=== PATIENT | female | born 1970 | race African-American/Black ===

== ENCOUNTER 2016-10-13 11:27 | Emergency (ER) | payer MEDICAID, OTHER ==
[~2016-10-13] VITALS: Ht 172.7 cm; Wt 54.4 kg
[~2016-10-13 11:27] MED LIST: ATIVAN1 MG ORAL; BACTRIM-DS1 EA PO; FLONASE1 SPRAYS NASAL; IBUPROFEN600 MG PO; KEFLEX500 MG PO; NKM
[2016-10-13 11:35] VITALS: BP 103/59
[2016-10-13 11:58] LABS: APPEARANCE,URINE CLEAR; KETONES,URINE NEGATIVE (NEGATIVE); LEUKOCYTE ESTERASE ,URINE 2+ (NEGATIVE); NITRITE,URINE NEGATIVE (NEGATIVE); PH,URINE 6.5 (4.5-8.0); PROTEIN,URINE 2+ (NEGATIVE); UROBILINOGEN,URINE NORMAL MG/DL (0.0-1.0)
[2016-10-13 12:11] LABS: BACTERIA,URINE FEW /HPF; SQUAMOUS EPITHELIAL CELL,UR FEW /LPF (NONE/OCC); WBC,URINE 15-20 /HPF (0 - 2)
[2016-10-13] MEDS ORDERED: CIPROFLOXACIN500 M2 ORAL (13:28)
[2016-10-13 13:35] VITALS: BP 103/54
--- NOTE | 2016-10-13 13:47 | Emergency Room Report ---
History of Present Illness General Chief Complaint: Vomiting Source: Patient Present Illness HPI 46YOF walk-in with 3 days right flank pain and polyuria. Denies fever/chills, abd pain, nausea/vomiting Denies previous Abd/pelvic surgery Denies other medical problems Allergies: Coded Allergies: No Known Allergies (Unverified , 01/21/12) Patient History Past Medical History: none Past Surgical History: none Pertinent Family History: none Social History: Denies: alcohol use, drug use, smoking Now: No Immunizations: UTD Reviewed Nursing Documentation: PMH: Agreed, PSxH: Agreed Nursing Documentation-PMH Hx Cardiac Problems: No - anemia Review of Systems All Other Systems: negative except mentioned in HPI Physical Exam Vital Signs Date Time Temp Pulse Resp B/P Pulse Ox O2 Delivery O2 Flow Rate FiO2 10/13/16 11:35 99.7 20 103/59 100 Room Air 10/13/16 11:35 108 Sp02 EP Interpretation: reviewed, normal General Appearance: normal inspection, well appearing, no apparent distress, alert, GCS 15, non-toxic Head: normocephalic, atraumatic Eyes: bilateral eye EOMI, bilateral eye PERRL ENT: normal ENT inspection, hearing grossly normal, normal voice Neck: normal inspection, full range of motion, supple, no bony tend Respiratory: normal inspection, lungs clear, normal breath sounds, no respiratory distress, no retraction, no wheezing Cardiovascular #1: regular rate, rhythm, no edema Gastrointestinal: normal inspection, normal bowel sounds, non tender, soft, no guarding, no hernia Genitourinary: CVA tenderness (R) Musculoskeletal: normal inspection, back normal, normal range of motion, Yocasta' s Sign negative Neurologic: normal inspection, alert, oriented x3, responsive, direct support staff member III-XII nml as tested, motor strength/tone normal, speech normal Psychiatric: normal inspection, judgement/insight normal, mood/affect normal Skin: normal inspection, normal color, no rash Medical Decision Making Diagnostic Impression: Primary Impression: Flank pain Additional Impression: Pyelonephritis ER Course UA grossly infected With accompanying right flank pain, ?pyelo Tolerating PO in ED Rx Cipro BID for 7 days Close PMD followup Last Vital Signs Date Time Temp Pulse Resp B/P Pulse Ox O2 Delivery O2 Flow Rate FiO2 10/13/16 11:35 99.7 108 20 103/59 100 Room Air Status: improved Disposition: HOME, SELF-CARE Condition: Improved Scripts Ciprofloxacin Hcl* (CIPROFLOXACIN HCL*) 500 Mg Tablet 500 MG ORAL Q12H for 7 Days, #14 TAB 0 Refills Prov: REHAN GOLDEN M.D. 10/13/16 Patient Instructions: Pyelonephritis, Adult, [id number] REHAN GOLDEN M.D. Oct 13, 2016 13:47
== END 2016-10-13 13:35 | disposition home or self-care (01) ==
LOC: EMR 12:20
DX: N12 Tubulo-interstitial nephritis, not specified as acute or chronic (principal)
CPT/HCPCS: 81003; 81025; 87086; 87181; 99283

== ENCOUNTER 2017-02-23 13:17 | Emergency (ER) | payer OTHER ==
[~2017-02-23] VITALS: Ht 172.7 cm; Wt 56.7 kg
[~2017-02-23 13:17] MED LIST changes: +CIPROFLOXACIN500 M2 ORAL
[2017-02-23 13:38] VITALS: BP 123/69
[2017-02-23] MEDS ORDERED: BACTRIM DS TAB1 EAC1 ORAL (13:54)
--- NOTE | 2017-02-23 13:57 | Emergency Room Report ---
History of Present Illness General Chief Complaint: Pain Source: Patient Present Illness HPI 46 y/o female c/o multiple complaints. Patient states she has a sore on the inside of her bilateral distal nares that is crusting and scabs for past 1 month. States its pain and has discharge and is worse when she picks at it. Not using any medication for her sxs. Denies any provoking or relieving factors. Denies any current n/v/f/c/d, abd pain, back pain, neck pain, photophobia, phonophobia, CP, SOB or headache. Patient also complains of painful lesions on left upper eyelid. States its swollen at the eyelash region and TTP when she touches pus-like sores. Not using medications for sxs. Patient denies any rash, blisters, eye pain, vision changes, discharge or drainage from eye, blindness, headache, periorbital swelling, fever, CP, SOB or cough. Allergies: Coded Allergies: No Known Allergies (Unverified , 01/21/12) Patient History Past Medical History: see triage record Past Surgical History: none Pertinent Family History: none Last Menstrual Period: n/a Now: No Reviewed Nursing Documentation: PMH: Agreed, PSxH: Agreed Nursing Documentation-PMH Past Medical History: No History, Except For Hx Cardiac Problems: No Review of Systems All Other Systems: negative except mentioned in HPI Physical Exam Vital Signs Date Time Temp Pulse Resp B/P (MAP) Pulse Ox O2 Delivery O2 Flow Rate FiO2 02/23/17 13:28 98.8 89 18 123/69 100 Room Air Sp02 EP Interpretation: reviewed, normal General Appearance: no apparent distress, alert, GCS 15, non-toxic Head: normocephalic, atraumatic Eyes: left eye lid inflammation - Left upper eyelid, left eye other - Left upper eyelid with pustules and inflammation along eyelash follicular region. There's no periorbital swelling, heat, erythema or tenderness., bilateral eye normal inspection, bilateral eye PERRL, bilateral eye EOMI ENT: hearing grossly normal, normal pharynx, no angioedema, normal voice, other - Erythematous / indurated lesion in distal opening of bilateral nares Neck: full range of motion, supple/symm/no masses Respiratory: chest non-tender, lungs clear, normal breath sounds, speaking full sentences Cardiovascular #1: regular rate, rhythm, no edema Musculoskeletal: gait/station normal Neurologic: alert, oriented x3, responsive, motor strength/tone normal, sensory intact, speech normal Psychiatric: judgement/insight normal, memory normal, mood/affect normal, no suicidal/homicidal ideation Skin: normal color, warm/dry, well hydrated, rash - as noted in eye and nose exam Lymphatic: no adenopathy Medical Decision Making PA Attestation Dr. Fisher my supervising physician with whom patient management has been discussed with. Diagnostic Impression: Primary Impression: Cellulitis of nasal tip Additional Impression: Blepharitis of left eyelid Qualified Codes: H01.004 - Unspecified blepharitis left upper eyelid ER Course Pt. presents to the ED c/o left eye lid swelling and nasal sore Ddx considered but are not limited to glaucoma, corneal abrasion, bacterial conjunctivitis, allergic conjunctivitis, viral conjunctivitis, CVA, ophthalmic thrombosis retinal detachment, blepharitis, cellulitis, shingles Vital signs: are WNL, pt. is afebrile H&PE are most consistent with Nasal cellulitis ORDERS: None, diagnosis is clinical ED INTERVENTIONS: None required at this time. DISCHARGE: At this time pt. is stable for d/c to home. Will provide printed patient care instructions, and any necessary prescriptions. Care plan and follow up instructions have been discussed with the patient prior to discharge. Last Vital Signs Date Time Temp Pulse Resp B/P (MAP) Pulse Ox O2 Delivery O2 Flow Rate FiO2 02/23/17 13:28 98.8 89 18 123/69 100 Room Air Status: unchanged Disposition: HOME, SELF-CARE Condition: Stable Scripts Trimethoprim/Sulfamethoxazole 160/800* (BACTRIM DS TABLET*) 1 Each Tablet 1 TAB ORAL TWICE A DAY for 10 Days, #20 TAB Prov: OVI BATISTA P.A. 02/23/17 Patient Instructions: Blepharitis, Cellulitis Additional Instructions: Take medication as directed. Put warm, wet pressure on your eyes Wet a clean wash cloth with warm (not scalding hot) water and put it over your eyes. When the wash cloth cools, reheat it with warm water and put it back over your eyes. Repeat these steps for 5 minutes, 2 to 4 times a day. Gently rub your eyelids Do this right after putting warm, wet pressure on your eyes. Use the washcloth or a clean fingertip to gently rub your eyelid in small circles. Wash your eyelids Use plain warm water or warm water with a drop of baby shampoo on a clean washcloth, gauze pad, or cotton swab. Gently clean any crusty material off the eyelashes and eyelids. Do not rub hard or you can cause more irritation. You can also use [id number] eyelid scrubs and pads. Advised patient to go to the ER immediately if the swelling and heat extend beyond the eye lid, if sxs worsen, vision changes, eye pain, or if they do not improve in the next 3-5 days. Take medication as directed. Patient instructed to take ibuprofen and tylenol as needed for pain. Patient is to keep the infected area clean and dry. Patient to follow up with PCP in 4-5 days to monitor resolution of symptoms. Patient should come back sooner if their symptoms do not get better within 3 days of starting treatment or if the red area gets bigger, more swollen, or more painful. OVI BATISTA Feb 23, 2017 13:57
[2017-02-23 14:03] VITALS: BP 123/69
== END 2017-02-23 14:03 | disposition home or self-care (01) ==
LOC: EMR 13:48
DX: J34.0 Abscess, furuncle and carbuncle of nose (principal); H01.004 Unspecified blepharitis left upper eyelid
CPT/HCPCS: 99283

== ENCOUNTER 2017-08-12 11:06 | Emergency (ER) | payer OTHER ==
[~2017-08-12] VITALS: Ht 172.7 cm; Wt 56.7 kg
[~2017-08-12 11:06] MED LIST changes: +BACTRIM DS TAB1 EAC1 ORAL
[2017-08-12 11:18] VITALS: BP 116/67
--- NOTE | 2017-08-12 13:02 | Emergency Room Report ---
History of Present Illness General Chief Complaint: Pain Source: Patient Present Illness HPI Patient presents with 2 different complaints. The patient states that 2 weeks ago she woke up with a localized pain in her left lower rib cage. She states it is very specific spot. She states that this pain is only with movement or with deep inspiration. Patient denies recent illness. The patient denies cough or congestion. Patient denies shortness of breath. She denies nausea or vomiting. She denies trauma. She also states that her right pinky finger has been swollen for the past week. She denies knowledge of any injury. She has swelling at the PIP joint. She denies pain there. She has no other complaints. Allergies: Coded Allergies: No Known Allergies (Unverified , 01/21/12) Patient History Past Medical History: none Social History: Reports: smoking, alcohol use - moderate; Denies: drug use Reviewed Nursing Documentation: PMH: Agreed; PSxH: Agreed Nursing Documentation-PMH Hx Cardiac Problems: No Review of Systems All Other Systems: negative except mentioned in HPI Physical Exam Vital Signs Date Time Temp Pulse Resp B/P (MAP) Pulse Ox O2 Delivery O2 Flow Rate FiO2 08/12/17 11:08 98.1 94 20 116/67 99 Room Air 98.1 Sp02 EP Interpretation: reviewed, normal General Appearance: no apparent distress, alert, GCS 15, non-toxic Head: normocephalic, atraumatic Eyes: bilateral eye normal inspection, bilateral eye PERRL ENT: hearing grossly normal, normal pharynx, no angioedema, normal voice Neck: full range of motion, supple/symm/no masses Respiratory: lungs clear, normal breath sounds, no respiratory distress, no retraction, no accessory muscle use, speaking full sentences, other - Localized tenderness to palpation over 8th rib/fingertip location, pain reproducible. Cardiovascular #1: regular rate, rhythm, no edema Gastrointestinal: normal bowel sounds, non tender, soft, non-distended, no guarding, no rebound Rectal: deferred Musculoskeletal: back normal, gait/station normal, normal range of motion, non- tender, other - R. 5th PIP with swelling and in flexion. Neurologic: alert, oriented x3, responsive, motor strength/tone normal, sensory intact, speech normal Psychiatric: judgement/insight normal, memory normal, mood/affect normal, no suicidal/homicidal ideation Skin: normal color, no rash, warm/dry, well hydrated Medical Decision Making Diagnostic Impression: Primary Impression: Rib pain on left side Additional Impression: Extensor tendon disruption ER Course The patient has musculoskeletal rib pain. The patient's pain is reproducible and localized on examination. I do not suspect pulmonary or cardiac etiology and therefore did not pursue this any further. However, I did obtain an EKG which was unremarkable and a chest x-ray which is also unremarkable. I did not feel this patient needed further laboratory workup. Patient also has a swollen PIP joint on her right fifth finger. Possibly this is an extensor tendon disruption. The deformity appears chronic to me. X-ray of the finger shows no acute fracture. The patient was placed in extension saline as a precaution. She is instructed to follow-up with an orthopedist. There is no evidence of infection. The patient is given return precautions and follow-up instructions. EKG Diagnostic Results Rate: normal Rhythm: NSR ST Segments: no acute changes Rhythm Strip Diag. Results EP Interpretation: yes Rate: 70's Rhythm: NSR, no PVC's, no ectopy Chest X-Ray Diagnostic Results Chest X-Ray Diagnostic Results : Chest X-Ray Ordered: Yes # of Views/Limited/Complete: 1 View Indication: Other - rib pain EP Interpretation: Yes Interpretation: no consolidation, no effusion, no pneumothorax, no acute cardiopulmonary disease Impression: No acute disease Electronically Signed by: Genny Other X-Ray Diagnostic Results Other X-Ray Diagnostic Results : X-Ray ordered: R. 5th digit # of Views/Limited Vs Complete: Complete Indication: Swelling - +ST swelling w/ flexion deformity. No fracture. EP Interpretation: Yes Interpretation: other - See above. Last Vital Signs Date Time Temp Pulse Resp B/P (MAP) Pulse Ox O2 Delivery O2 Flow Rate FiO2 08/12/17 11:18 98.1 71 20 116/67 99 Room Air 98.1 Status: improved Disposition: HOME, SELF-CARE Condition: Improved Referrals: NON PHYSICIAN (PCP) CHAITANYA LOOMIS D.O. August 12, 2017 13:02
[2017-08-12] MEDS ORDERED: IBUPROFEN600 MG ORAL (13:22)
[2017-08-12] MEDS ORDERED: LIDODERM700 M1 TOPIC (13:22)
[2017-08-12 13:32] VITALS: BP 124/69
--- NOTE | 2017-08-12 15:23 | Diagnostic Imaging Report ---
Indication: Pain Technique: 3 views of the right fifth finger Comparison: none The proximal interphalangeal joint. No acute fracture. No dislocation. The joint spaces are preserved Findings: There is slight ulnar angulation of the proximal interphalangeal joint. This appears to be due to slight deformity of the head of the proximal phalanx rather than due to any acute subluxation. There is, however, soft tissue surrounding Impression: Soft tissue swelling surrounding the proximal interphalangeal joint, likely on the basis of ligamentous or other soft tissue injury. No evidence of acute fracture, dislocation, or subluxation
--- NOTE | 2017-08-12 15:27 | Diagnostic Imaging Report ---
Indication: Chest pain Technique: One view of the chest Comparison: 05/04/2013 Findings: The lungs and pleural spaces are clear. The heart size is normal. Findings are unchanged Impression: Negative
== END 2017-08-12 13:35 | disposition home or self-care (01) ==
LOC: EMR 12:30
DX: R07.81 Pleurodynia (principal); M21.241 Flexion deformity, right finger joints
CPT/HCPCS: 71045; 93005; 99284

== ENCOUNTER 2018-05-10 02:03 | Emergency (ER) | payer OTHER ==
[~2018-05-10] VITALS: Ht 172.7 cm; Wt 59.0 kg
[~2018-05-10 02:03] MED LIST changes: +IBUPROFEN600 MG ORAL; +LIDODERM700 M1 TOPIC; +NAPROXEN375 M2 ORAL; +ROBAXIN500 MG PO; +TRAMADOL HCL50 MG ORAL
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
--- NOTE | 2018-05-10 03:30 | NUR ---
ED Nurse Note: Received report and Pt from RN Emily, knowing Pt will DC in AM. Pt is AO x 3times, unsteady gait. Assist Pt back to bed rest.
[2018-05-10 03:43] VITALS: BP 132/81
--- NOTE | 2018-05-10 05:22 | NUR ---
ED Nurse Note: Message left to Pt's sister Yaritza [phone], await for respond back.
[2018-05-10 05:49] VITALS: BP 128/78
--- NOTE | 2018-05-10 05:49 | NUR ---
ED Nurse Note: Pt cleared DC by PERCY. Pt is AO x 4times, VSS, on room air no distress. ID bend removed, belongings given back to Pt. DC instruction given, Pt understood well. Pt walked out unit with steady gait, and Pt will take bus home.
[2018-05-10 05:52] VITALS: BP 128/78
== END 2018-05-10 05:53 | disposition home or self-care (01) ==
LOC: EDUNIT# 02:03 → EDBD 02:03 → EMR 04:05
DX: F10.920 Alcohol use, unspecified with intoxication, uncomplicated (principal); F17.200 Nicotine dependence, unspecified, uncomplicated
CPT/HCPCS: 99283

== ENCOUNTER 2019-02-10 08:05 | Emergency (ER) | payer OTHER ==
[~2019-02-10] VITALS: Ht 170.2 cm; Wt 56.7 kg
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
--- NOTE | 2019-02-10 08:54 | Emergency Room Report ---
History of Present Illness General Chief Complaint: Pain Source: Patient, Medical Record Present Illness HPI Patient presents with complaints of injury to her right foot reports that she tripped over an object about 7 days ago she has been having pain now with walking on that right foot since then Denies any knee pain denies any other head injury or trauma to the head denies any neck pain Pain is 7 out of 10 worse with walking Allergies: Coded Allergies: No Known Allergies (Unverified , 01/21/12) Patient History Past Medical History: see triage record Last Menstrual Period: N/A Now: No Reviewed Nursing Documentation: PMH: Agreed; PSxH: Agreed Nursing Documentation-PMH Hx Cardiac Problems: No Review of Systems All Other Systems: negative except mentioned in HPI Physical Exam Vital Signs Date Time Temp Pulse Resp B/P (MAP) Pulse Ox O2 Delivery O2 Flow Rate FiO2 02/10/19 08:10 98.2 77 18 109/71 (84) 99 Room Air Sp02 EP Interpretation: reviewed, normal General Appearance: well appearing, no apparent distress Head: normocephalic, atraumatic Eyes: bilateral eye PERRL, bilateral eye EOMI ENT: normal pharynx Neck: supple Respiratory: lungs clear, no respiratory distress Cardiovascular #1: regular rate, rhythm Gastrointestinal: soft Musculoskeletal: swelling - Noted to the right foot patient also tender on palpation of the midfoot diffusely ankle is nontender knee is not tender Neurologic: alert, oriented x3, responsive Psychiatric: normal inspection Skin: other - Swelling as above Lymphatic: no adenopathy Procedures Splinting Splinting : Consent: Verbal Location: Right foot Hand-Made Type: plaster Splint: poserior short Pre-Proc Neuro Vasc Exam: normal Post-Proc Neuro Vasc Exam: normal Patient Tolerated: Well Complications: None Medical Decision Making Diagnostic Impression: Primary Impression: Foot fracture, right ER Course Given the patient's history and presentation x-ray imaging is obtained there is evidence of third and fourth Metatarsal fractures Patient has splint applied as noted above requires pain control and follow-up is provided for orthopedic care Other X-Ray Diagnostic Results Other X-Ray Diagnostic Results : X-Ray ordered: Right foot # of Views/Limited Vs Complete: 3 View Indication: Pain EP Interpretation: Yes Interpretation: other - Third and fourth metatarsal fracture, soft tissue swelling, no obvious foreign body Impression: Other - Acute third and fourth metatarsal fracture Electronically Signed by: Rony Becker DO Last Vital Signs Date Time Temp Pulse Resp B/P (MAP) Pulse Ox O2 Delivery O2 Flow Rate FiO2 02/10/19 08:10 98.2 77 18 109/71 (84) 99 Room Air Status: improved Disposition: HOME, SELF-CARE Condition: Improved Referrals: NON PHYSICIAN (PCP) Additional Instructions: Patient is provided with the discharge instructions notified to follow up with primary doctor in the next 2-3 days otherwise return to the er with any worsening symptoms. Please note that this report is being documented using Station X technology. This can lead to erroneous entry secondary to incorrect interpretation by the dictating instrument. Rony Becker DO Feb 10, 2019 08:54
[2019-02-10 10:02] VITALS: BP 111/79
[2019-02-10] MEDS ORDERED: IBUPROFEN600 MG ORAL (10:02)
[2019-02-10 10:12] VITALS: BP 109/71
--- NOTE | 2019-02-10 10:12 | NUR ---
ED Nurse Note: Posterior splint applied by RN. Pt tolerated well. Educated pt to come back for any signs of poor circulation. Pt demonstrated using crutches and understanding of D/C instructions and follwo up care. AOOx4, vital signs stable. NAD.
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
== END 2019-02-10 10:12 | disposition home or self-care (01) ==
LOC: EMR 08:36
DX: S92.501A Displaced unspecified fracture of right lesser toe(s), initial encounter for closed fracture (principal); W01.0XXA Fall on same level from slipping, tripping and stumbling without subsequent striking against object, initial encounter; Y92.9 Unspecified place or not applicable
CPT/HCPCS: 29515; 99283

== ENCOUNTER 2019-07-19 16:13 | Emergency (ER) | payer OTHER ==
[~2019-07-19] VITALS: Ht 172.7 cm; Wt 56.7 kg
[2019-07-19 16:23] VITALS: BP 111/66
--- NOTE | 2019-07-19 16:24 | NUR ---
ED Nurse Note: A/OX4. CAME TO ED DUE TO RIGHT 5TH DIGIT PAIN 5/10 WITH SWELLING SINCE June WHEN SHE FELL. CMS INTACT. BREATHING NORMAL/EVEN/UNLABORED. SKIN WARM/DRY/INTACT. NAD NOTED
--- NOTE | 2019-07-19 17:32 | Diagnostic Imaging Report ---
Indication: Pain and swelling of the fifth proximal interphalangeal joint Technique: 3 views of the right fifth finger Comparison: none Findings: There is slight ulnar deviation of the fifth metacarpophalangeal joint and the proximal interphalangeal joint. No definite acute fractures. No dislocations. The joint spaces are preserved. Impression: Slight deformities, as described, could be physiologic or could indicate ligamentous injury. No acute bony trauma
[2019-07-19] MEDS ORDERED: FLUCONAZOLE100 MG ORAL ×2 (17:58→18:02)
[2019-07-19] MEDS ORDERED: IBUPROFEN400 MG ORAL (17:58)
[2019-07-19] MEDS ORDERED: Fluconazole 100mg tab ORAL ONE ×2 (18:00→18:15)
[2019-07-19 18:08] VITALS: BP 111/66
--- NOTE | 2019-07-19 18:08 | NUR ---
ER DISCHARGE NOTE: Patient is cleared to be discharged per ERMD, pt is aox4, on room air, with stable vital signs. pt was given dc and prescription instructions, pt was able to verbalize understanding, pt id band removed. pt is able to ambulate with steady gait. pt took all belongings.
--- NOTE | 2019-07-19 19:15 | Emergency Room Report ---
History of Present Illness General Chief Complaint: Pain Source: Patient Present Illness HPI Patient is a 48-year-old female who presents after increased finger pain. Patient had recent fall and had injury to her small finger. Had increased pain with range of motion and had difficulty extending the finger. Injury occurred approximately 2 weeks prior to arrival. She noted some puncture wound from [place]. Allergies: Coded Allergies: No Known Allergies (Unverified , 07/19/19) COVID-19 Screening Contact w/high risk pt: No Recent Travel to affected area: No Experienced COVID-19 symptoms?: No Patient History Past Medical History: see triage record Last Menstrual Period: NONE Reviewed Nursing Documentation: PMH: Agreed; PSxH: Agreed Nursing Documentation-PMH Past Medical History: No History, Except For Hx Cardiac Problems: No Review of Systems All Other Systems: negative except mentioned in HPI Physical Exam Vital Signs Date Time Temp Pulse Resp B/P (MAP) Pulse Ox O2 Delivery O2 Flow Rate FiO2 07/19/19 16:19 98.4 96 18 111/66 (81) 96 Room Air General Appearance: well appearing, no apparent distress Head: normocephalic, atraumatic ENT: hearing grossly normal, normal voice Neck: full range of motion, supple Respiratory: no respiratory distress, speaking full sentences Musculoskeletal: no calf tenderness, other - Small finger with mild soft tissue swelling without fluctuance and normal cap refill Neurologic: normal gait Psychiatric: mood/affect normal Skin: no rash Medical Decision Making Diagnostic Impression: Primary Impression: Sporotrichosis Additional Impression: Mallet finger ER Course Patient presented for finger injury after fall. Differential diagnosis include was not limited to foreign body, abscess, contusion, tendon injury among others. Patient has a benign exam and does not appear to require any laboratory testing at this time. Patient's injury appears to be several weeks prior to arrival. Does not appear to be any evidence of abscess. Patient does have difficulty with extension to the small finger DIP joint consistent with a tendon injury due to recent fall. X-ray imaging showed no evidence of acute fracture or foreign body. Per patient the swelling is somewhat been improving. Given the recent puncture wound with gisele thorns will be started on antifungal medication.Patient is advised that she would likely need to follow-up with a hand surgeon. She is advised to use warm compresses and to return if increased welling worsening pain or other concerns. Last Vital Signs Date Time Temp Pulse Resp B/P (MAP) Pulse Ox O2 Delivery O2 Flow Rate FiO2 07/19/19 16:23 98.4 96 18 111/66 96 Room Air Status: improved Disposition: HOME, SELF-CARE Condition: Stable Scripts Fluconazole (FLUCONAZOLE) 100 Mg Tablet 400 MG ORAL DAILY for 7 Days, #28 TAB 0 Refills Prov: Mirtha Best NATALY 07/19/19 Ibuprofen* (MOTRIN*) 400 Mg Tablet 400 MG ORAL THREE TIMES A DAY, #30 TAB 0 Refills Prov: Mirtha Best 07/19/19 Fluconazole (FLUCONAZOLE) 100 Mg Tablet 100 MG ORAL DAILY for 7 Days, #7 TAB 0 Refills Prov: Mirtha Best 07/19/19 Patient Instructions: Finger Sprain, [id number] Additional Instructions: You are being given a small amount of antifungal medications because you need to see her primary care doctor and have your liver enzymes checked prior to receiving a prolonged course of antifungal medications. You are being treated for suspected Sporothrix infection which is common after injuries involving puncture by a gisele thorn. This type of infection requires a long course of antifungal treatment. USE WARM COMPRESSES MULTIPLE TIMES PER DAY Take medications as directed. Follow up with a Primary Care Provider in 3-5 days, even if your symptoms have resolved. ALSO HAND SPECIALIST: To evaluate for ligament injury. Return sooner to ED if new symptoms occur, or current symptoms become worse. - Please note that this Emergency Department Report was dictated using [employer] software, occasionally this can lead to erroneous entry secondary to interpretation by the dictation equipment. John Epps MD Jul 19, 2019 19:15
== END 2019-07-19 18:08 | disposition home or self-care (01) ==
LOC: EMR 16:35
DX: B42.9 Sporotrichosis, unspecified (principal); M20.011 Mallet finger of right finger(s)
CPT/HCPCS: 73140; Z7502; 99283

== ENCOUNTER 2019-11-26 19:49 | Emergency (ER) | payer MEDICAID, OTHER ==
[~2019-11-26] VITALS: Ht 172.7 cm; Wt 68.0 kg
[~2019-11-26 19:49] MED LIST changes: +FLUCONAZOLE100 MG ORAL; +IBUPROFEN400 MG ORAL
[2019-11-26 20:05] VITALS: BP 145/85
--- NOTE | 2019-11-26 20:05 | NUR ---
ED Nurse Note: Patient walked in from home d/t forehead laceration acquired 2 hours prior to arrival. Patient aao x 4 and ambulatory. Patient reported ETOH use of unknown quantity, reports fall with loss of consciousness with unknown duration, pt reports her friend saw her fall, pt reports she was standing when she fell forward. pt stable during assessment, ERMD at bedside.
[2019-11-26] MEDS ORDERED: Tetanus/Diptheria/Pertussis IM ONE (20:15)
[2019-11-26] MEDS ORDERED: Lidocaine 1% 10mg/ml/EPI 0.01mg/ml 30ml INJ ONE (20:15)
--- NOTE | 2019-11-26 20:15 | NUR ---
ED Nurse Note: Wound cleansed with sterile normal saline.
--- NOTE | 2019-11-26 20:16 | NUR ---
ED Nurse Note: ERMD at bedside for lac repair.
--- NOTE | 2019-11-26 20:35 | NUR ---
ED Nurse Note: Patient taken to CT in stable condition
--- NOTE | 2019-11-26 20:44 | Emergency Room Report ---
History of Present Illness General Chief Complaint: Laceration Source: Patient Present Illness HPI 49-year-old female here with laceration to the forehead. The patient admits to drinking a heavy amount of alcohol today. She was walking outside when she tripped and fell landing face forward on the ground striking her forehead on the ground. Denies loss of consciousness. No headaches, vision changes, focal numbness or weakness, fevers, chills, chest pain, palpitation, shortness of breath, nausea, vomiting, diarrhea, dysuria, lightheadedness. Allergies: Coded Allergies: No Known Allergies (Unverified , 07/19/19) COVID-19 Screening Contact w/high risk pt: No Recent Travel to affected area: No Experienced COVID-19 symptoms?: No COVID-19 Testing performed ICT CUSTOMER SUPPORT OFFICER: No Nursing Documentation-[facility] Past Medical History: No History, Except For Hx Cardiac Problems: No Review of Systems All Other Systems: negative except mentioned in HPI Physical Exam Vital Signs Date Time Temp Pulse Resp B/P (MAP) Pulse Ox O2 Delivery O2 Flow Rate FiO2 11/26/19 19:57 98.2 81 12 154/89 (110) 100 Room Air Sp02 EP Interpretation: reviewed, normal General Appearance: no apparent distress, alert, non-toxic Head: normocephalic, other - 1 cm linear laceration in the midline forehead Eyes: bilateral eye normal inspection, bilateral eye PERRL ENT: hearing grossly normal, normal pharynx, no angioedema, normal voice Neck: full range of motion, supple/symm/no masses Respiratory: chest non-tender, lungs clear, normal breath sounds, speaking full sentences Cardiovascular #1: regular rate, rhythm, no edema Cardiovascular #2: 2+ carotid (R), 2+ carotid (L), 2+ radial (R), 2+ radial (L) , 2+ dorsalis pedis (R), 2+ dorsalis pedis (L) Gastrointestinal: normal bowel sounds, non tender, soft, non-distended, no guarding, no rebound Rectal: deferred Genitourinary: normal inspection, no CVA tenderness Musculoskeletal: back normal, normal range of motion, calf tenderness, gait/ station normal, non-tender Neurologic: alert, motor strength/tone normal, oriented x3, sensory intact, responsive, speech normal Psychiatric: judgement/insight normal, memory normal, mood/affect normal, no suicidal/homicidal ideation, other - Slightly intoxicated with mildly slurred speech but is calm and cooperative Lymphatic: no adenopathy Procedures Laceration/Wound Repair Laceration/Wound Repair : Consent: Verbal Wound Location: face Wound's Depth, Shape: superficial Wound Explored: clean Anesthesia: Lidocaine w/ Epi Wound Repaired With: sutures Suture Size/Type: 5:0 Number of Sutures: 2 Patient Tolerated: Well Complications: None Progress 2 5-0 sutures placed with good wound approximation Medical Decision Making Diagnostic Impression: Primary Impression: Forehead laceration Additional Impressions: Fall Alcohol intoxication ER Course 49-year-old female here after mechanical fall while intoxicated. Patient was hemodynamically stable in the emergency department with a normal neurologic examination aside from evidence of alcohol intoxication. However she was calm and cooperative in the emergency department. Laceration was repaired as described above. Patient tolerated procedure well. CT head: No acute abnormalities CT cervical spine: negative Tetanus was updated in the emergency department. Patient remained hemodynamically stable and was told to come back to the emergency department in 5 days for suture removal. She was observed until she was clinically sober. The patient is alert, oriented x 3, neuro exam normal, gait is stable. The patient is not clinically intoxicated. I discussed the adverse effects of substance abuse with the patient and encouraged cessation of substance consumption. Discharged in stable condition. Last Vital Signs Date Time Temp Pulse Resp B/P (MAP) Pulse Ox O2 Delivery O2 Flow Rate FiO2 11/26/19 20:05 98.2 79 16 145/85 100 Room Air Scripts No Active Prescriptions or Reported Meds Referrals: NON PHYSICIAN (PCP) Max Olivo M.D. Nov 26, 2019 20:44
--- NOTE | 2019-11-26 20:47 | Diagnostic Imaging Report ---
EXAM: CT Head Without Intravenous Contrast CLINICAL HISTORY: FALL TECHNIQUE: Axial computed tomography images of the head/brain without intravenous contrast. CTDI is 53 mGy and DLP is 4 6030 mGy-cm. One or more of the following dose reduction techniques were used: automated exposure control, adjustment of the mA and/or kV according to patient size, use of iterative reconstruction technique. COMPARISON: None FINDINGS: Brain: There is generalized volume loss. There are background changes of chronic microvascular ischemic disease. There is no evidence of acute territorial infarct or hemorrhage. Ventricles: Unremarkable. No ventriculomegaly. Bones/joints: Unremarkable. No acute fracture. Soft tissues: Unremarkable. Sinuses: Unremarkable as visualized. No acute sinusitis. Mastoid air cells: Unremarkable as visualized. No mastoid effusion. IMPRESSION: No acute intracranial process.
--- NOTE | 2019-11-26 20:56 | Diagnostic Imaging Report ---
EXAM: CT Cervical Spine Without Intravenous Contrast CLINICAL HISTORY: FALL TECHNIQUE: Axial computed tomography images of the cervical spine without intravenous contrast. CTDI is 19.2 mGy and DLP is 463.5 mGy-cm. One or more of the following dose reduction techniques were used: automated exposure control, adjustment of the mA and/or kV according to patient size, use of iterative reconstruction technique. COMPARISON: None FINDINGS: Vertebrae: There is no acute fracture or dislocation of the cervical spine. There is a straightening of the normal lordosis. Discs/spinal canal/neural foramina: There are multilevel small posterior disc osteophytes most pronounced at C6-C7. There is probable mild central canal stenosis at this level. Note is also made of moderate to severe bilateral neural foraminal narrowings at this level, left greater than right. Soft tissues: Unremarkable. IMPRESSION: No acute fracture or dislocation. There is evidence of degenerative disc disease, most pronounced at C6-C7.
[2019-11-26 21:55] VITALS: BP 142/79
--- NOTE | 2019-11-26 21:55 | NUR ---
ER DISCHARGE NOTE: Patient is cleared to be discharged per ERMD, pt is aox4, on room air, with stable vital signs. pt was given dc instructions, pt was able to verbalize understanding, pt id band removed. pt is able to ambulate. pt took all belongings. pt discharged in stable condition accompanied by sister Gracy.
== END 2019-11-26 21:55 | disposition home or self-care (01) ==
LOC: EMR 20:15
DX: S01.81XA Laceration without foreign body of other part of head, initial encounter (principal); F10.129 Alcohol abuse with intoxication, unspecified; W01.198A Fall on same level from slipping, tripping and stumbling with subsequent striking against other object, initial encounter; Y92.9 Unspecified place or not applicable; Z23 Encounter for immunization
CPT/HCPCS: 12011; 70450; 72125; 90471; 90715; Z7502; 99284